=== PATIENT | female | born 1955 | race Caucasian/White ===

== ENCOUNTER 2018-10-08 08:35 | Emergency (ER) | payer BC ==
[~2018-10-08] VITALS: Ht 172.7 cm; Wt 70.0 kg
[2018-10-08] MEDS ORDERED: COLCHICINE0.6 M2 PO (09:14)
[2018-10-08] MEDS ORDERED: INDOMETHACIN25 MG PO (09:14)
[2018-10-08] MEDS ORDERED: TRAMADOL HYDROC50 MG PO (09:14)
[2018-10-08 09:28] LABS: HEMATOCRIT 34.8 % (37.0-47.0); HEMOGLOBIN 11.2 g/dl (12.0-16.0); IMMATURE GRANULOCYTES 0.4 % (0.0-5.0); MEAN CELL VOLUME 92.6 fL CALC (80.0-100.0); MEAN CORPUSCULAR HGB 29.8 pG CALC (26.0-32.0); MEAN CORPUSCULAR HGB CONC 32.2 g/L CALC (32.0-36.0); NEUT# 5.8 thou/uL (2.00-7.15); RED BLOOD COUNT 3.76 mill/uL (4.20-5.60); RED CELL DISTRI WIDTH 13.5 % (11.5-15.5)
[2018-10-08 09:47] LABS: ANION GAP 17 (6-22 (CALC)); BUN 14 mg/dL (8-23); BUN/CREATININE RATIO 22 (12-20 (CALC)); CARBON DIOXIDE 24 mmol/l (22-30); CHLORIDE 104 mmol/l (95-108); CREATININE 0.6 mg/dL (0.5-1.0); GFR > 60 ML/MIN (>=60 (CALC)); GFR FOR AFR.AMER. > 60 ML/MIN (>=60 (CALC)); POTASSIUM 4.4 mmol/l (3.5-5.1); SODIUM 140 mmol/l (137-146)
[2018-10-08 10:15] VITALS: BP 119/75
== END 2018-10-08 10:30 | disposition home or self-care (01) | DRG 556 ==
LOC: ED 08:35
PROVIDERS: Family Medicine
DX: M25.562 Pain in left knee (principal); M17.12 Unilateral primary osteoarthritis, left knee; M25.462 Effusion, left knee

== ENCOUNTER 2018-10-09 12:09 | Emergency (ER) | payer BC ==
[~2018-10-09] VITALS: Ht 172.7 cm; Wt 70.0 kg
[~2018-10-09 12:09] MED LIST: COLCHICINE0.6 M2 PO; INDOMETHACIN25 MG PO; TRAMADOL HYDROC50 MG PO
[2018-10-09 12:59] VITALS: BP 154/88
== END 2018-10-09 13:10 | disposition home or self-care (01) | DRG 554 ==
LOC: ED 12:09
DX: M17.12 Unilateral primary osteoarthritis, left knee (principal)